=== PATIENT | male | born 1990 | race Caucasian/White ===

== ENCOUNTER 2016-05-14 20:47 | Emergency (ER) | payer BC ==
--- NOTE | 2016-05-14 21:43 | ER Document Report ---
ED Medical Screen (RME) - General Stated Complaint: IVC W/PAPERS Notes: pt brought to ER as IVC. Paperwork shows he tried to hang himself. Is bipolar and is not currently taking his medications. Aggressive behavior punching and kicking things. Pt will not answer questions when asked. I have greeted and performed a rapid initial assessment of this patient. A comprehensive ED assessment and evaluation of the patient, analysis of test results and completion of the medical decision making process will be conducted by additional ED providers. Physical Exam - Vital signs Vitals: Temp Pulse BP Pulse Ox 99.2 F 73 123/79 97 05/14/16 20:56 05/14/16 20:56 05/14/16 20:56 05/14/16 20:56 - General General appearance: Other - stares straignt ahead and will not answer questions In distress: None Course - Vital Signs Vital signs: Temp Pulse Resp BP Pulse Ox 99.2 F 73 123/79 97 05/14/16 20:56 05/14/16 20:56 05/14/16 20:56 05/14/16 20:56
[2016-05-14 22:07] LABS: ABSOLUTE EOSINOPHILS # (AUTO) 0.2 10^3/uL (0.0-0.6); ABSOLUTE LYMPHOCYTES (AUTO) 2.3 10^3/uL (0.5-4.7); ABSOLUTE MONOCYTES (AUTO) 0.7 10^3/uL (0.1-1.4); ABSOLUTE NEUT (AUTO) 5.9 10^3/uL (1.7-8.2); BASOPHILS % (AUTO) 0.3 % (0-2); EOSINOPHILS % (AUTO) 1.7 % (0-6); HEMATOCRIT 46.3 % (37.9-51.0); HEMOGLOBIN 15.8 g/dL (13.5-17.0); HGB HCT DIFFERENCE 1.1; LYMPHOCYTES % (AUTO) 24.9 % (13-45); MEAN CORPUSCULAR HGB CONC 34.1 g/dL (32.0-36.0); MEAN CORPUSCULAR VOLUME 91 fl (80-97); MONOCYTES % (AUTO) 7.3 % (3-13); RED BLOOD COUNT 5.09 10^6/uL (4.35-5.55); RED CELL DISTRIBUTION WIDTH 12.3 % (11.5-14.0); SEGMENTED NEUTROPHILS % (AUTO) 65.8 % (42-78)
[2016-05-14 22:22] LABS: APPEARANCE,URINE SLIGHTLY-CLOUDY; BILIRUBIN,URINE NEGATIVE (NEGATIVE); GLUCOSE, URINE NEGATIVE (NEGATIVE); KETONES,URINE 20 mg/dL (NEGATIVE); LEUKOCYTE ESTERASE,URINE NEGATIVE (NEGATIVE); NITRITE,URINE NEGATIVE (NEGATIVE); PROTEIN,URINE NEGATIVE (NEGATIVE); URINE SPECIFIC GRAVITY 1.025; UROBILINOGEN,URINE NEGATIVE mg/dL (<2.0)
[2016-05-14 22:24] LABS: ALANINE AMINOTRANSFERASE 28 U/L (21-72); ALKALINE PHOSPHATASE 88 U/L (38-126); ANION GAP 12 (5-19); ASPARTATE AMINO TRANSFERASE 26 U/L (17-59); BILIRUBIN,TOTAL 1.4 mg/dL (0.2-1.3); BLOOD UREA NITROGEN 24 mg/dL (7-20); CALCIUM 10.8 mg/dL (8.4-10.2); CARBON DIOXIDE 29 mmol/L (22-30); CHLORIDE 98 mmol/L (98-107); CREATININE RESULT 0.92 mg/dL (0.52-1.25); GLUCOSE 83 mg/dL (75-110); POTASSIUM 4.5 mmol/L (3.6-5.0); SODIUM 139.4 mmol/L (137-145); TOTAL PROTEIN 7.7 g/dL (6.3-8.2)
[2016-05-14 22:25] LABS: ALCOHOL < 10 mg/dL (NONE DETECTED)
[2016-05-14 22:30] LABS: URINE BARBITURATES SCREEN NEGATIVE; URINE METHADONE SCREEN NEGATIVE; URINE OPIATES LOW NEGATIVE; URINE PHENCYCLIDINE SCREEN NEGATIVE
--- NOTE | 2016-05-15 00:38 | ER Document Report ---
ED General - General Chief Complaint: Psych Problem Stated Complaint: IVC W/PAPERS Cannot obtain history due to: Uncooperative Notes: Patient is a 25-year-old male who presents on IVC paperwork after his roommate contacted police for concerns of the patient was acting erratically and apparently had tried to hang himself. Patient admits to prior psychiatric history will not explain what he has been diagnosed with her what medications he supposed to be taking. He will not discuss any prior suicide attempts or his current suicidality. No additional history obtained as patient refuses to answer any of my additional questions. He does however deny any acute medical complaints. TRAVEL OUTSIDE OF THE [place] IN LAST 30 DAYS: No Past Medical History - General Information source: Patient - Social History Smoking Status: Current Every Day Smoker Frequency of alcohol use: None Drug Abuse: None Lives with: Friend Family History: Reviewed & Not Pertinent Patient has suicidal ideation: Yes Patient has homicidal ideation: Yes Renal/ Medical History: Denies: Hx Peritoneal Dialysis Review of Systems - Review of Systems Notes: Constitutional: Negative for fever. HENT: Negative for sore throat. Eyes: Negative for visual changes. Cardiovascular: Negative for chest pain. Respiratory: Negative for shortness of breath. Gastrointestinal: Negative for abdominal pain, vomiting or diarrhea. Genitourinary: Negative for dysuria. Musculoskeletal: Negative for back pain. Skin: Negative for rash. Neurological: Negative for headaches, weakness or numbness. 10 point ROS negative except as marked above and in HPI. Physical Exam - Vital signs Vitals: Temp Pulse BP Pulse Ox 99.2 F 73 123/79 97 05/14/16 20:56 05/14/16 20:56 05/14/16 20:56 05/14/16 20:56 Interpretation: Normal Notes: PHYSICAL EXAMINATION: GENERAL: Disheveled but in no acute distress HEAD: Atraumatic, normocephalic. EYES: Pupils equal round and reactive to light, extraocular movements intact, sclera anicteric, conjunctiva are normal. ENT: nares patent, oropharynx clear without exudates. Moist mucous membranes. NECK: Normal range of motion, supple without lymphadenopathy LUNGS: Breath sounds clear to auscultation bilaterally and equal. No wheezes rales or rhonchi. HEART: Regular rate and rhythm without murmurs ABDOMEN: Soft, nontender, normoactive bowel sounds. No guarding, no rebound. No masses appreciated. EXTREMITIES: Normal range of motion, no pitting or edema. No cyanosis. NEUROLOGICAL: No focal neurological deficits. Moves all extremities spontaneously and on command. PSYCH: Poor eye contact, depressed mood. Flat affect. SKIN: Warm, Dry, normal turgor, no rashes or lesions noted. Course - Re-evaluation Re-evalutation: 05/15/16 00:37 Patient presents an IVC after apparently trying to hang himself. He does not have any physical evidence of hanging and is otherwise well appearing. Patient is very guarded on exam, will not answer any of my questions. He denies any acute medical complaints. Medical screening laboratories are unremarkable. Physical exam unremarkable. He is medically cleared for evaluation by psychiatry in the morning. - Vital Signs Vital signs: Temp Pulse Resp BP Pulse Ox 99.2 F 73 123/79 97 05/14/16 20:56 05/14/16 20:56 05/14/16 20:56 05/14/16 20:56 - Laboratory Result Diagrams: 05/14/16 21:50 05/14/16 21:50 Laboratory results interpreted by me: 05/14/16 05/14/16 21:50 21:50 BUN 24 H Calcium 10.8 H Total Bilirubin 1.4 H Urine Ketones 20 H Salicylates < 1.0 L Acetaminophen < 10 L - EKG Interpretation by Me Additional EKG results interpreted by me: 05/15/16 02:45 Normal sinus rhythm. Rate 65. No ST elevations or depressions. QTC 408. Discharge - Discharge Clinical Impression: Suicidal ideation Condition: Good Disposition: PSYCH HOSP/UNIT
--- NOTE | 2016-05-15 07:54 | EKG REPORT ---
SEVERITY:- NORMAL ECG - SINUS RHYTHM : Confirmed by: Krista Quigley MD 15-May-2016 07:53:58
[2016-05-15] MEDS ORDERED: OLANZAPINE 5 MG TABLET PO ONE (13:00)
[2016-05-15] MEDS ORDERED: DIVALPROEX SODIUM 250 MG TABLET.DR PO ONE (13:00)
--- NOTE | 2016-05-15 14:32 | PSYCHOLOGICAL NOTE ---
Psych Note - Psych Note Psych Note: Patient is a 25-year-old male who presents on IVC paperwork after his roommate contacted police for concerns of the patient was acting erratically and apparently had tried to hang himself. Patient admits to prior psychiatric history will not explain what he has been diagnosed with her what medications he supposed to be taking. He will not discuss any prior suicide attempts or his current suicidal status. Patient states that he walked outside and was greeted by officers; in answering what [facility]. He disclosed that he must have "scared my roommate. " He continues state that he was just releasing stress by using a post as a heavy bag. Patient clarified stating he was punching the post. When asked about suicidal ideation or any attempts patient attempted to disengage; however , when asked to see his neck, which was being covered by the patient, the clinician observed several calvert and abrasions. When asked what cause the calvert , the patient stated "string." Patient states that it is "just circumstances" and refused to further engage in evaluation. Clinician notes that a few hours after evaluation, the patient was observed by clinician to get calmly get up from his bed, walk around to the table and repeatedly punched his food tray. All without any verbal or physical indications of his aggressive outburst. He then proceeded to calmly get into bed and stated to clinician upon entering the room that he "made a mistake" and then refused to further engage in conversation. Clinician exited room because the patient was calm and did not want to escalate the situation. Patient is alert and orientated to person place time and circumstance. Mood is dysphoric with flat affect. Patient denies suicidal and homicidal ideation; clinician notes proof of suicidal gesture are seen with calvert and abrasion on patient's neck. Patient denies auditory and visual hallucinations; no delusions are noted. Thought processes logical organized and linear. Thought content is guarded. Conversational speech is low in rate and tone. Eye contact is poor. Intellectual abilities appear to be within average range. Attention and concentration are poor. Insight, judgment, impulse control are poor. 296.80 (F31.9) Unspecified Bipolar and Related Disorder per history R/O 312.34 (F63.81) intermittent explosive disorder Impression\\plan: Patient is recommended to continue under IVC, patient is unwilling to engage in evaluation is provided limited information is a poor historian. Patient has calvert and abrasions that endorses suicidal gestures and collateral information however patient minimizes stating he was just "string." Clinician notes that the patient has had 2 physical outburst with punching the lunch tray. Patient gives no warning to his aggressive outbursts; ie nothing verbal, patient calmly gets out of the bed walks around to the tray and then starts repeatedly punching the tray. Patient's behaviour demonstrates that he is a danger to himself and others. Patient is recommended for inpatient treatment. Dr. Caballero was consulted on the care and management of this patient. Attending physician is in agreement with recommendations and disposition.
--- NOTE | 2016-05-15 16:06 | ER Document Report ---
Doctor's Note Notes: 05/15/16 16:05 Patient is stable to be transferred IVC medically cleared with threat to himself and others was suicidal ideation.
[2016-05-15 16:30] VITALS: BP 100/59
[2016-05-15] MEDS ORDERED: DIVALPROEX SODIUM 250 MG TABLET.DR PO SCH (22:00)
[2016-05-15] MEDS ORDERED: BENZTROPINE MESYLATE 1 MG TABLET PO SCH (22:00)
[2016-05-16] MEDS ORDERED: OLANZAPINE 5 MG TABLET PO SCH (10:00)
== END 2016-05-15 16:20 ==
LOC: ER 20:47
DX: F32.9 Major depressive disorder, single episode, unspecified (principal); R45.851 Suicidal ideations; F17.200 Nicotine dependence, unspecified, uncomplicated
CPT/HCPCS: 36415; 80053; 80307; 81001; 85025; 93005; 93010; 99285